=== PATIENT | female | born 1965 | race Caucasian/White ===

== ENCOUNTER → 2017-10-14 | Outpatient (CLI) | payer OTHER ==
[~2017-10-14] MED LIST: DULERA 200 MCG/13 GM IH; MEDROL DOSE PACK PO; METFORMIN HCL500 MG PO; PRAVASTATIN; PRAVASTATIN SOD40 MG PO; PROVENTIL3 ML/2.5 M IH; SINGULAIR 10MG10 MG PO; SINGULAIR10 MG PO; SYNTHROID200 MCG PO; TESSALON200 MG PO; VENTOLIN HFA18 GM; WELLBUTRIN XL300 MG PO; [UNRECOGNIZED DRUG - OTHER] PO
== END | disposition home or self-care (01) ==
LOC: SONOGRAMA 09:42
DX: C73 Malignant neoplasm of thyroid gland (principal); E89.0 Postprocedural hypothyroidism

== ENCOUNTER 2018-03-06 22:27 | Emergency (ER) | payer OTHER ==
[~2018-03-06] VITALS: Ht 172.7 cm; Wt 113.4 kg
[2018-03-07] MEDS ORDERED: MEDROLPACK PO (02:53)
[2018-03-07] MEDS ORDERED: MUCINEX DM ER1 EAC1 PO (02:53)
[2018-03-07] MEDS ORDERED: IPRAT-ALBUT 0.5-3 ML IH (02:53)
== END 2018-03-07 02:59 | disposition home or self-care (01) ==
LOC: ER 22:27
DX: J06.9 Acute upper respiratory infection, unspecified (principal); R06.02 Shortness of breath

== ENCOUNTER 2019-07-22 06:00 | Day surgery (SDC) | payer OTHER ==
[~2019-07-22 06:00] MED LIST changes: +ABILIFY10 MG PO; +HYZAAR 100-12.1 EACH PO; +IPRAT-ALBUT 0.5-3 ML IH; +JANUMET XR 50-1 EAC1 PO; +LASIX40 MG PO; +LOFIBRA PO; +MACROBID 100 M100 MG PO; +MEDROLPACK PO; +MUCINEX DM ER1 EAC1 PO; +PEPCID PO; +PROTONIX40 MG PO; +PROZAC40 MG PO; +RESTORIL PO; +TRANSENE PO; +TRULICITY1.5 MG/0.5; +WIXELA 250-501 EACH IH
== END 2019-07-22 17:10 | disposition home or self-care (01) ==
LOC: CIR.AMB 06:00 → EDSTATUS 07:00 → SURG 07:00 → CIR.AMB 07:00
DX: K80.10 Calculus of gallbladder with chronic cholecystitis without obstruction (principal)